=== PATIENT | male | born 1965 | race African-American/Black ===

== ENCOUNTER 2019-03-20 05:31 | Inpatient (IN) | payer MEDICAID ==
[~2019-03-20] VITALS: Ht 175.3 cm; Wt 62.6 kg
[2019-03-20] MEDS ORDERED: MORPHINE SULFATE 4 MG/ML CPJ (NOT FOR IM USE) IV STA (07:12)
[2019-03-20] MEDS ORDERED: ONDANSETRON HCL 4MG/2ML INJ IV STA (07:12)
[2019-03-20 09:35] LABS: CHLORIDE 105 mEq/L (98-107)
[2019-03-20 09:37] LABS: HEMATOCRIT. 22.6 % (42.0-52.0); MEAN CORPUSCULAR HEMOGLOBIN 21.4 pg (28.0-32.0); MEAN CORPUSCULAR VOLUME 71.1 fL (80.0-94.0); MEAN PLATELET VOLUME 7.2 fl (7.4-10.4); PLATELET 197 x1000/uL (130-400); RED BLOOD CELL COUNT 3.18 mill/uL (4.7-6.1); RED CELL DISTRIBUTION WIDTH 20.3 % (11.6-14.6)
[2019-03-20 09:44] LABS: HEMOGLOBIN. 6.8 g/dL (14.0-18.0)
[2019-03-20 10:16] LABS: PLATELET ESTIMATE NORMAL
[2019-03-20] MEDS: SODIUM CHLORIDE 0.45% 1,000 ML IV SCH ×2 (11:53→16:41)
[2019-03-20] MEDS ORDERED: CLONIDINE 0.1MG TABLET PO PRN (12:00)
[2019-03-20] MEDS ORDERED: MAGNESIUM/ALUMINUM HYDROXIDE/SIMETHICONE 30ML UDC PO PRN (12:00)
[2019-03-20] MEDS ORDERED: NA PHOS,M-B/NA PHOS,DI-BA ENEMA 118ML PR PRN (12:00)
[2019-03-20] MEDS ORDERED: MORPHINE SULFATE 2 MG/ML CPJ (NOT FOR IM USE) IV PRN (12:00)
[2019-03-20] MEDS ORDERED: ACETAMINOPHEN 325MG TABLET PO PRN (12:00)
[2019-03-20] MEDS ORDERED: GUAIFENESIN 200MG/10ML SUGAR FREE UDC PO PRN (12:00)
[2019-03-20] MEDS ORDERED: DIPHENHYDRAMINE 50MG/ML VIAL IV PRN (12:00)
[2019-03-20] MEDS ORDERED: HYDROCODONE/ACETAMINOPHEN 5/325MG TABLET PO PRN (12:00)
[2019-03-20] MEDS ORDERED: DOCUSATE SODIUM 100MG CAPSULE PO PRN (12:00)
[2019-03-20] MEDS ORDERED: LORAZEPAM 2MG/ML CPJ IV PRN (12:00)
[2019-03-20] MEDS ORDERED: ONDANSETRON HCL 4MG/2ML INJ IV PRN (12:00)
[2019-03-20] MEDS ORDERED: PANTOPRAZOLE SODIUM 40 MG/VIAL IV SCH (12:45)
[2019-03-20 14:34] LABS: CHLORIDE 104 mEq/L (98-107); HEMOGLOBIN 6.9 g/dL (14.0-18.0)
[2019-03-20 14:35] LABS: HEMATOCRIT 22.8 % (42.0-52.0)
[2019-03-20 14:39] LABS: TOTAL IRON BINDING CAPACITY 445 ug/dL (250-450)
[2019-03-20] MEDS: PANTOPRAZOLE SODIUM 40 MG/VIAL IV SCH (19:55)
[2019-03-20 20:45] VITALS: BP 119/60
[2019-03-21] VITALS: BP 114/69
[2019-03-21 00:33] LABS: HEMATOCRIT 28.7 % (42.0-52.0); HEMOGLOBIN 8.8 g/dL (14.0-18.0)
[2019-03-21] MEDS ORDERED: ALBU05 NEB (01:14)
[2019-03-21 04:00] VITALS: BP 121/72
[2019-03-21 07:35] LABS: CHLORIDE 103 mEq/L (98-107)
[2019-03-21 07:47] LABS: LDL CHOLESTEROL 102 mg/dL (5-100)
[2019-03-21 07:49] LABS: HDL CHOLESTEROL 71 mg/dL (40-59)
[2019-03-21 07:55] LABS: HEMATOCRIT. 30.2 % (42.0-52.0); HEMOGLOBIN. 9.1 g/dL (14.0-18.0); MEAN CORPUSCULAR HEMOGLOBIN 22.1 pg (28.0-32.0); MEAN CORPUSCULAR VOLUME 73.4 fL (80.0-94.0); MEAN PLATELET VOLUME 7.7 fl (7.4-10.4); PLATELET 185 x1000/uL (130-400); RED BLOOD CELL COUNT 4.11 mill/uL (4.7-6.1); RED CELL DISTRIBUTION WIDTH 21.8 % (11.6-14.6)
[2019-03-21 08:00] VITALS: BP 123/70
[2019-03-21] MEDS: PANTOPRAZOLE SODIUM 40 MG/VIAL IV SCH ×3 (09:09→20:45)
[2019-03-21] MEDS: POTASSIUM CHLORIDE 20MEQ TABLET SR PO NR ×2 (11:09→11:14)
[2019-03-21 11:45] VITALS: BP 116/75
[2019-03-21] MEDS ORDERED: POTASSIUM CHLORIDE INJ 40 MEQ in DEXT 5% WATER 250 ML IV SCH (13:00)
[2019-03-21] MEDS ORDERED: MIDAZOLAM HCL 5 MG/5 ML VIAL ONE (14:34)
[2019-03-21] MEDS ORDERED: PROPOFOL 200MG/20ML VIAL IV ONE ×2 (14:34→14:39)
[2019-03-21] MEDS ORDERED: SUCCINYLCHOLINE CHLORIDE 200MG/10ML IV ONE (14:35)
[2019-03-21] MEDS ORDERED: FENTANYL CITRATE/PF 50MCG/ML 2ML VIAL ONE (14:39)
[2019-03-21 16:58] VITALS: BP 129/74
[2019-03-21 17:11] LABS: CREATINE KINASE 130 IU/L (39-308)
[2019-03-21 17:12] LABS: CREATINE KINASE MB FRACTION < 1.0 ng/mL (0.5-3.6)
[2019-03-21 17:14] LABS: T4 FREE 1.23 ng/dL (0.76-1.46)
[2019-03-21] MEDS: SUCRALFATE 1G TABLET PO SCH ×2 (17:47→20:32)
[2019-03-21 19:52] LABS: PLATELET ESTIMATE NORMAL
[2019-03-21 20:00] VITALS: BP 119/77
[2019-03-22] VITALS: BP 119/77
[2019-03-22] MEDS ORDERED: BISACODYL 5MG TABLET PO ONE ×2 (01:15→06:15)
[2019-03-22] MEDS ORDERED: SORBITOL 70% SOLN 30ML PO ONE ×2 (01:15→05:30)
[2019-03-22] MEDS ORDERED: METOCLOPRAMIDE HCL 10MG/2ML VIAL IV ONE ×3 (01:15→10:30)
[2019-03-22 04:00] VITALS: BP 113/77
[2019-03-22 05:10] LABS: HEMATOCRIT. 29.9 % (42.0-52.0); HEMOGLOBIN. 9.1 g/dL (14.0-18.0); MEAN CORPUSCULAR HEMOGLOBIN 22.3 pg (28.0-32.0); MEAN CORPUSCULAR VOLUME 73.6 fL (80.0-94.0); MEAN PLATELET VOLUME 7.7 fl (7.4-10.4); PLATELET 155 x1000/uL (130-400); RED BLOOD CELL COUNT 4.05 mill/uL (4.7-6.1)
[2019-03-22] MEDS: SODIUM CHLORIDE 0.45% 1,000 ML IV SCH (05:53)
[2019-03-22 05:57] LABS: CHLORIDE 104 mEq/L (98-107)
[2019-03-22] MEDS: SUCRALFATE 1G TABLET PO SCH ×4 (06:18→20:37)
[2019-03-22 06:19] LABS: CREATINE KINASE 136 IU/L (39-308)
[2019-03-22 06:20] LABS: CREATINE KINASE MB FRACTION < 1.0 ng/mL (0.5-3.6)
[2019-03-22 08:00] VITALS: BP 132/91
[2019-03-22 10:05] LABS: PLATELET ESTIMATE NORMAL
[2019-03-22] MEDS ORDERED: POTASSIUM CHLORIDE INJ 40 MEQ in DEXT 5% WATER 250 ML IV SCH (10:30)
[2019-03-22 12:00] VITALS: BP 125/91
[2019-03-22] MEDS ORDERED: KETAMINE HCL 50 MG/ML 10ML ONE (13:11)
[2019-03-22] MEDS ORDERED: LIDOCAINE HCL/PF 1% 10 MG/ML 5ML VIAL ONE (13:15)
[2019-03-22] MEDS ORDERED: PROPOFOL 200MG/20ML VIAL IV ONE (13:15)
[2019-03-22] MEDS ORDERED: MIDAZOLAM HCL 2 MG/2 ML VIAL ONE (13:15)
[2019-03-22] MEDS: SODIUM CHLORIDE 0.9% 1,000 ML IV SCH (14:19)
[2019-03-22 16:00] VITALS: BP 134/81
[2019-03-22] MEDS: PANTOPRAZOLE SODIUM 40 MG/VIAL IV SCH (16:53)
[2019-03-22 18:08] LABS: INR 1.3
[2019-03-22 20:00] VITALS: BP 125/89
[2019-03-23] VITALS: BP 129/73
[2019-03-23] MEDS: SODIUM CHLORIDE 0.9% 1,000 ML IV SCH (01:41)
[2019-03-23 04:00] VITALS: BP 134/81
[2019-03-23] MEDS: SUCRALFATE 1G TABLET PO SCH (05:24)
[2019-03-23 07:38] VITALS: BP 136/85
[2019-03-23 07:41] VITALS: BP 136/85
[2019-03-23] MEDS: PANTOPRAZOLE SODIUM 40 MG/VIAL IV SCH (09:00)
== END 2019-03-23 08:30 | disposition home or self-care (01) | DRG 241 ==
LOC: ER 05:31 → EDBEDREQ 14:48 → EDBEDREQSVC 14:48 → 8WST 15:29 → CANRESERV 19:04 → ENRESERV 19:04
PROVIDERS: ADMIT Internal Medicine; ATTEND Internal Medicine
PROC: 30233N1 Transfusion of Nonautologous Red Blood Cells into Peripheral Vein, Percutaneous Approach (ICD-10-PCS; 2019-03-20)
PROC: 0DB68ZX Excision of Stomach, Via Natural or Artificial Opening Endoscopic, Diagnostic (ICD-10-PCS; principal; 2019-03-21)
PROC: 0DJD8ZZ Inspection of Lower Intestinal Tract, Via Natural or Artificial Opening Endoscopic (ICD-10-PCS; 2019-03-22)
DX: K29.60 Other gastritis without bleeding (principal); R64 Cachexia; I48.19 Other persistent atrial fibrillation; E44.1 Mild protein-calorie malnutrition; D50.9 Iron deficiency anemia, unspecified; F17.210 Nicotine dependence, cigarettes, uncomplicated; D17.5 Benign lipomatous neoplasm of intra-abdominal organs; E78.5 Hyperlipidemia, unspecified; E86.0 Dehydration; K64.8 Other hemorrhoids; K21.0 Gastro-esophageal reflux disease with esophagitis; E87.6 Hypokalemia; J44.9 Chronic obstructive pulmonary disease, unspecified; I10 Essential (primary) hypertension; Z68.20 Body mass index [BMI] 20.0-20.9, adult; K29.80 Duodenitis without bleeding
CPT/HCPCS: 36415; 71045; 80048; 80053; 80061; 82270; 82550; 82553; 82728; 83036; 83540; 83550; 83735; 83880; 84132; 84439; 84443; 84484; 85014; 85018; 85025; 85379; 86850; 86900; 86920; 87804; 88305; 88313; 93005; 93306; 96374; 99285; C1893; C9113; G0378; J0330; J2250; J2270; J2405; J2704; J2765; J3010; J3480; J3490; J7030; J7060; P9016

== ENCOUNTER 2020-06-19 02:47 | Inpatient (IN) | payer MEDICAID ==
[~2020-06-19] VITALS: Ht 175.3 cm; Wt 68.5 kg
[~2020-06-19 02:47] MED LIST: ALBU05 NEB
[2020-06-19 03:10] LABS: BASOPHILS % 0.2 % (0.0-2.0); EOSINOPHILS % 2.4 % (0.0-5.0); HEMATOCRIT. 32.8 % (42.0-52.0); HEMOGLOBIN. 11.1 g/dL (14.0-18.0); LYMPHOCYTES % 18.7 % (20.0-50.0); MEAN CORPUSCULAR HEMOGLOBIN 30.3 pg (28.0-32.0); MEAN CORPUSCULAR VOLUME 89.8 fL (80.0-94.0); MEAN PLATELET VOLUME 8.5 fl (7.4-10.4); MONOCYTES % 7.9 % (2.0-8.0); NEUTROPHILS % 70.8 % (40.0-76.0); PLATELET 109 x1000/uL (130-400); RED BLOOD CELL COUNT 3.66 mill/uL (4.7-6.1)
[2020-06-19] MEDS ORDERED: MORPHINE SULFATE 4 MG/ML CPJ (NOT FOR IM USE) IV ONE (03:15)
[2020-06-19 03:18] LABS: CHLORIDE 88 mEq/L (98-107)
[2020-06-19 03:22] LABS: PARTIAL THROMBOPLASTIN TIME 26.5 sec (23.4-31.0); PROTHROMBIN TIME 11.2 sec (9.6-11.0)
[2020-06-19] MEDS ORDERED: POTASSIUM CHLORIDE 20MEQ TABLET SR PO NR ×2 (04:00→14:45)
[2020-06-19] MEDS ORDERED: POTASSIUM CHLORIDE INJ 30 MEQ in DEXT 5%/0.9% NACL 1,000 ML IV NR (04:30)
[2020-06-19 06:17] LABS: CLARITY URINE CLEAR (CLEAR); COLOR URINE YELLOW (YELLOW); KETONES URINE 1+ (NEGATIVE); LEUKOCYTE ESTERASE URINE 1+ (NEGATIVE); NITRITE URINE NEGATIVE (NEGATIVE); OCCULT BLOOD URINE NEGATIVE (NEGATIVE); PROTEIN URINE NEGATIVE (NEGATIVE); SPECIFIC GRAVITY URINE 1.006 (1.005-1.030)
[2020-06-19] MEDS ORDERED: LORAZEPAM 0.5MG TABLET PO PRN (09:00)
[2020-06-19] MEDS ORDERED: CLONIDINE 0.1MG TABLET PO PRN (09:00)
[2020-06-19] MEDS ORDERED: ONDANSETRON HCL 4MG/2ML INJ IV PRN (09:00)
[2020-06-19] MEDS ORDERED: DOCUSATE SODIUM 100MG CAPSULE PO PRN (09:00)
[2020-06-19] MEDS ORDERED: HYDROCODONE/ACETAMINOPHEN 5/325MG TABLET PO PRN (09:00)
[2020-06-19] MEDS ORDERED: ACETAMINOPHEN 325MG TABLET PO PRN ×2 (09:00)
[2020-06-19] MEDS ORDERED: IPRATROPIUM/ALBUTEROL 0.5-3(2.5)MG/3ML NEB HHN PRN (09:00)
[2020-06-19 10:15] LABS: CHLORIDE 94 mEq/L (98-107)
[2020-06-19 10:25] LABS: CREATINE KINASE 526 IU/L (39-308)
[2020-06-19 10:26] LABS: CREATINE KINASE MB FRACTION 1.1 ng/mL (0.5-3.6)
[2020-06-19] MEDS ORDERED: POTASSIUM CHLORIDE 20MEQ TABLET SR PO SCH (10:30)
[2020-06-19 10:48] LABS: BG BASE EXCESS 9.5 mmol/L (-2.0-2.0); BG CARBOXYHEMOGLOBIN 1.3 % (0.5-1.5); BG DEOXYHEMOGLOBIN 8.2 % (0.0-5.0); BG FRACTION INSPIRED OXYGEN 21; BG HCO3 ACT 33.1 mmol/L (22.0-26.0); BG METHEMOGLOBIN 0.2 % (0.0-1.5); BG OXYGEN SATURATION 91.7 % (92.0-98.5); BG OXYHEMOGLOBIN 90.3 % (94.0-97.0); BG PCO2 40.9 mmHg (35.0-45.0); BG PH 7.526 (7.350-7.450); BG PO2 59.6 mmHg (75.0-100.0); BG SAMPLE SITE RIGHT RADIAL; BG TOTAL HEMOGLOBIN 11.9 g/dL (12.0-18.0); BG VENT MODE ROOM AIR
[2020-06-19 12:00] VITALS: BP 90/56
[2020-06-19] MEDS ORDERED: NICOTINE 7MG PATCH TD SCH (14:00)
[2020-06-19 16:00] VITALS: BP 101/64
[2020-06-19 17:15] VITALS: BP 119/71
[2020-06-19] MEDS ORDERED: NICOTINE 14MG PATCH TD SCH (17:30)
[2020-06-19] MEDS: SODIUM CHLORIDE 0.9% 1,000 ML IV SCH (18:06)
[2020-06-19 20:00] VITALS: BP 114/7
[2020-06-19] MEDS: CHLORDIAZEPOXIDE 25MG CAPSULE PO SCH (21:50)
[2020-06-20] VITALS: BP 109/65
[2020-06-20 04:00] VITALS: BP 112/78
[2020-06-20] MEDS: CHLORDIAZEPOXIDE 25MG CAPSULE PO SCH ×3 (06:42→21:23)
[2020-06-20] MEDS: SODIUM CHLORIDE 0.9% 1,000 ML IV SCH (06:43)
[2020-06-20 07:19] LABS: HEMATOCRIT. 34.4 % (42.0-52.0); HEMOGLOBIN. 11.2 g/dL (14.0-18.0); MEAN CORPUSCULAR HEMOGLOBIN 30.2 pg (28.0-32.0); MEAN CORPUSCULAR VOLUME 92.6 fL (80.0-94.0); MEAN PLATELET VOLUME 9.6 fl (7.4-10.4); PLATELET 113 x1000/uL (130-400); RED BLOOD CELL COUNT 3.72 mill/uL (4.7-6.1); RED CELL DISTRIBUTION WIDTH 19.4 % (11.6-14.6)
[2020-06-20 07:20] LABS: *AMPHETAMINES SCREEN URINE NEGATIVE (NEGATIVE); *BARBITURATES SCREEN URINE NEGATIVE (NEGATIVE); *BENZODIAZEPINES SCREEN URINE NEGATIVE (NEGATIVE)
[2020-06-20 07:21] LABS: *COCAINE SCREEN URINE NEGATIVE (NEGATIVE); CANNABINOID URINE SCREEN PRESUMTIVE POSITIVE (NEGATIVE); METHADONE URINE SCREEN NEGATIVE (NEGATIVE); OPIATES URINE SCREEN PRESUMTIVE POSITIVE (NEGATIVE); PHENCYCLIDINE URINE SCREEN NEGATIVE (NEGATIVE)
[2020-06-20 07:34] LABS: CHLORIDE 98 mEq/L (98-107)
[2020-06-20 07:47] LABS: FERRITIN 144 ng/mL (22-322)
[2020-06-20 07:49] LABS: TOTAL IRON BINDING CAPACITY 376 ug/dL (250-450)
[2020-06-20 07:51] LABS: CREATINE KINASE 237 IU/L (39-308)
[2020-06-20 07:58] LABS: HEPATITIS B SURFACE ANTIGEN NEGATIVE
[2020-06-20 08:27] LABS: HEPATITIS A AB IGM NEGATIVE (NEGATIVE)
[2020-06-20] MEDS ORDERED: POTASSIUM CHLORIDE 20MEQ/PACKET PO NR (08:45)
[2020-06-20] MEDS ORDERED: NICOTINE 14MG PATCH TD SCH (09:00)
[2020-06-20] MEDS: NICOTINE 14MG PATCH TD SCH (09:53)
[2020-06-20] MEDS ORDERED: POTASSIUM CHLORIDE INJ 40 MEQ in DEXT 5% WATER 250 ML IV NR (11:00)
[2020-06-20 12:00] VITALS: BP 105/71
[2020-06-20 14:32] LABS: VITAMIN B12 SERUM 536 pg/mL (211-911)
[2020-06-20 16:00] VITALS: BP 112/67
[2020-06-20 16:45] LABS: PLATELET ESTIMATE DECREASED
[2020-06-20 20:00] VITALS: BP 123/68
[2020-06-21] VITALS: BP 98/69
[2020-06-21 04:00] VITALS: BP 106/66
[2020-06-21] MEDS: CHLORDIAZEPOXIDE 25MG CAPSULE PO SCH ×2 (06:10→13:39)
[2020-06-21] MEDS: SODIUM CHLORIDE 0.9% 1,000 ML IV SCH ×2 (06:11→09:13)
[2020-06-21 07:07] LABS: HEMATOCRIT. 33.9 % (42.0-52.0); MEAN CORPUSCULAR VOLUME 92.5 fL (80.0-94.0); MEAN PLATELET VOLUME 9.2 fl (7.4-10.4); PLATELET 140 x1000/uL (130-400); RED BLOOD CELL COUNT 3.66 mill/uL (4.7-6.1); RED CELL DISTRIBUTION WIDTH 19.4 % (11.6-14.6)
[2020-06-21 07:34] LABS: CHLORIDE 104 mEq/L (98-107)
[2020-06-21 08:00] VITALS: BP 116/76
[2020-06-21] MEDS: NICOTINE 14MG PATCH TD SCH (09:13)
[2020-06-21 12:00] VITALS: BP 124/69
[2020-06-21] MEDS: PANTOPRAZOLE SODIUM 40 MG/VIAL IV SCH (13:39)
[2020-06-21 15:46] LABS: PLATELET ESTIMATE NORMAL
[2020-06-21 16:00] VITALS: BP_SYST 116; BP_SYST 121; BP_DIAS 72; BP_DIAS 91
[2020-06-21 20:00] VITALS: BP 112/70
[2020-06-22] VITALS: BP 117/76
[2020-06-22] MEDS: CHLORDIAZEPOXIDE 25MG CAPSULE PO SCH ×3 (00:20→13:27)
[2020-06-22] MEDS: SODIUM CHLORIDE 0.9% 1,000 ML IV SCH ×2 (00:28→12:10)
[2020-06-22 04:00] VITALS: BP 119/81
[2020-06-22 07:09] LABS: HEMATOCRIT. 34.7 % (42.0-52.0); HEMOGLOBIN. 11.4 g/dL (14.0-18.0); MEAN CORPUSCULAR HEMOGLOBIN 30.6 pg (28.0-32.0); MEAN PLATELET VOLUME 8.4 fl (7.4-10.4); PLATELET 168 x1000/uL (130-400); RED BLOOD CELL COUNT 3.73 mill/uL (4.7-6.1); RED CELL DISTRIBUTION WIDTH 19.4 % (11.6-14.6)
[2020-06-22 07:24] LABS: CHLORIDE 107 mEq/L (98-107)
[2020-06-22 08:00] VITALS: BP 112/75
[2020-06-22] MEDS: NICOTINE 14MG PATCH TD SCH (08:28)
[2020-06-22] MEDS: PANTOPRAZOLE SODIUM 40 MG/VIAL IV SCH (08:29)
[2020-06-22] MEDS ORDERED: PANT40TA51 MT (11:37)
[2020-06-22 12:00] VITALS: BP 108/78
[2020-06-22 13:37] LABS: ATYPICAL LYMPHOCYTES 1; PLATELET ESTIMATE NORMAL
[2020-06-22 14:37] VITALS: BP 108/78
[2020-06-23] MEDS ORDERED: FAMOTIDINE 20MG TABLET PO SCH (09:00)
== END 2020-06-22 15:15 | disposition home or self-care (01) | DRG 203 ==
LOC: ER 02:47 → 8WST 05:29 → EDBEDREQTM 05:33 → EDBEDREQ 05:33 → ENRESERV 07:23
PROVIDERS: ADMIT Internal Medicine; ATTEND Internal Medicine
DX: M94.0 Chondrocostal junction syndrome [Tietze] (principal); D69.6 Thrombocytopenia, unspecified; E87.8 Other disorders of electrolyte and fluid balance, not elsewhere classified; E87.1 Hypo-osmolality and hyponatremia; I36.1 Nonrheumatic tricuspid (valve) insufficiency; M62.82 Rhabdomyolysis; I45.81 Long QT syndrome; R56.9 Unspecified convulsions; D64.9 Anemia, unspecified; E87.6 Hypokalemia; F12.90 Cannabis use, unspecified, uncomplicated; F17.210 Nicotine dependence, cigarettes, uncomplicated; I10 Essential (primary) hypertension; F10.10 Alcohol abuse, uncomplicated; R74.01 Elevation of levels of liver transaminase levels; Z79.899 Other long term (current) drug therapy; J45.909 Unspecified asthma, uncomplicated; R41.3 Other amnesia
CPT/HCPCS: 36415; 36600; 71045; 76700; 80048; 80053; 80305; 80320; 81003; 82375; 82550; 82553; 82607; 82728; 82746; 82805; 83540; 83550; 83735; 83880; 84484; 85025; 86705; 86709; 86803; 87340; 93005; 93306; 99285; C9113; J2270; J3480; J7030; J7042; J7060; G0480

== ENCOUNTER 2020-12-27 08:52 | Emergency (ER) | payer MEDICAID ==
[~2020-12-27] VITALS: Ht 180.3 cm; Wt 70.0 kg
[~2020-12-27 08:52] MED LIST changes: +PANT40TA51 MT
[2020-12-27] MEDS ORDERED: SODIUM CHLORIDE 0.9% 1,000 ML IV ONE (09:30)
[2020-12-27 10:04] LABS: BASOPHILS % 1.8 % (0.0-2.0); EOSINOPHILS % 2.8 % (0.0-5.0); HEMATOCRIT. 39.8 % (42.0-52.0); HEMOGLOBIN. 13.1 g/dL (14.0-18.0); LYMPHOCYTES % 40.9 % (20.0-50.0); MEAN CORPUSCULAR HEMOGLOBIN 33.9 pg (28.0-32.0); MEAN PLATELET VOLUME 7.8 fl (7.4-10.4); MONOCYTES % 7.8 % (2.0-8.0); NEUTROPHILS % 46.7 % (40.0-76.0); PLATELET 337 x1000/uL (130-400); RED BLOOD CELL COUNT 3.87 mill/uL (4.7-6.1); RED CELL DISTRIBUTION WIDTH 16.1 % (11.6-14.6)
[2020-12-27 11:34] LABS: CHLORIDE 117 mEq/L (98-107)
[2020-12-27 11:54] LABS: ETHANOL BLOOD 331 mg/dL
[2020-12-27 12:23] VITALS: BP 127/80
== END 2020-12-27 12:49 | disposition home or self-care (01) ==
LOC: ER 08:54
DX: F10.129 Alcohol abuse with intoxication, unspecified (principal); J45.909 Unspecified asthma, uncomplicated; I49.9 Cardiac arrhythmia, unspecified; R51.9 Headache, unspecified; Z86.59 Personal history of other mental and behavioral disorders; Y90.8 Blood alcohol level of 240 mg/100 ml or more
CPT/HCPCS: 36415; 70450; 80053; 80320; 85025; 93005; 96360; 99285; J7030; Z7610; G0480

== ENCOUNTER 2021-01-03 20:29 | Emergency (ER) | payer MEDICAID ==
[~2021-01-03] VITALS: Ht 177.8 cm; Wt 81.6 kg
[2021-01-03] MEDS: ONDANSETRON HCL 4MG/2ML INJ IV STA (21:33)
[2021-01-03] MEDS: MORPHINE SULFATE 4 MG/ML CPJ (NOT FOR IM USE) IV STA (21:34)
[2021-01-03] MEDS: NITROGLYCERIN OINT 1GM/INCH UDPKT TD ONE (21:34)
[2021-01-03 21:36] LABS: BASOPHILS % 0.5 % (0.0-2.0); HEMATOCRIT. 36.1 % (42.0-52.0); HEMOGLOBIN. 12.2 g/dL (14.0-18.0); LYMPHOCYTES % 22.7 % (20.0-50.0); MEAN CORPUSCULAR HEMOGLOBIN 33.7 pg (28.0-32.0); MEAN CORPUSCULAR VOLUME 99.8 fL (80.0-94.0); MEAN PLATELET VOLUME 8.6 fl (7.4-10.4); MONOCYTES % 7.5 % (2.0-8.0); NEUTROPHILS % 66.3 % (40.0-76.0); PLATELET 171 x1000/uL (130-400); RED BLOOD CELL COUNT 3.61 mill/uL (4.7-6.1); RED CELL DISTRIBUTION WIDTH 16.1 % (11.6-14.6)
[2021-01-03] MEDS: ASPIRIN 81MG TABLET PO ONE (21:42)
[2021-01-03 21:44] LABS: CHLORIDE 98 mEq/L (98-107)
[2021-01-03 21:48] LABS: ETHANOL BLOOD 14 mg/dL
[2021-01-03 22:01] LABS: *AMPHETAMINES SCREEN URINE NEGATIVE (NEGATIVE); *BARBITURATES SCREEN URINE NEGATIVE (NEGATIVE)
[2021-01-03 22:02] LABS: *BENZODIAZEPINES SCREEN URINE NEGATIVE (NEGATIVE); *COCAINE SCREEN URINE NEGATIVE (NEGATIVE); METHADONE URINE SCREEN NEGATIVE (NEGATIVE); OPIATES URINE SCREEN NEGATIVE (NEGATIVE)
[2021-01-03 22:03] LABS: CANNABINOID URINE SCREEN PRESUMTIVE POSITIVE (NEGATIVE); PHENCYCLIDINE URINE SCREEN NEGATIVE (NEGATIVE)
[2021-01-03 23:16] VITALS: BP 139/84
== END 2021-01-04 00:01 | disposition short-term general hospital (02) ==
LOC: ER 20:29
DX: R07.89 Other chest pain (principal); I10 Essential (primary) hypertension; J45.909 Unspecified asthma, uncomplicated; F10.129 Alcohol abuse with intoxication, unspecified; Z86.59 Personal history of other mental and behavioral disorders; Y90.0 Blood alcohol level of less than 20 mg/100 ml
CPT/HCPCS: 36415; 71045; 80053; 80305; 80320; 83690; 83880; 84484; 85025; 93005; 96374; 96375; 99285; J2270; J2405; Z7610; G0480

== ENCOUNTER 2021-08-25 09:48 | Emergency (ER) | payer MEDICAID, OTHER ==
[~2021-08-25] VITALS: Ht 175.3 cm; Wt 68.0 kg
[2021-08-25] MEDS ORDERED: KETOROLAC 30MG/ML VIAL IV ONE ×2 (10:45→14:29)
[2021-08-25] MEDS ORDERED: LEVETIRACETAM 1000MG PREMIX 100 ML IV ONE ×2 (10:45→14:30)
[2021-08-25 11:16] LABS: HEMATOCRIT. 33.2 % (42.0-52.0); HEMOGLOBIN. 10.7 g/dL (14.0-18.0); MEAN CORPUSCULAR HEMOGLOBIN 28.2 pg (28.0-32.0); MEAN CORPUSCULAR VOLUME 87.2 fL (80.0-94.0); PLATELET 191 x1000/uL (130-400); RED CELL DISTRIBUTION WIDTH 23.5 % (11.6-14.6)
[2021-08-25 11:25] LABS: CHLORIDE 107 mEq/L (98-107); PROTHROMBIN TIME 11.2 sec (9.6-11.0)
[2021-08-25 11:37] LABS: CREATINE KINASE 470 IU/L (39-308); ETHANOL BLOOD < 10 mg/dL
[2021-08-25] MEDS ORDERED: SODIUM CHLORIDE 0.9% 1,000 ML IV ONE (11:45)
[2021-08-25 12:06] LABS: PLATELET ESTIMATE NORMAL
[2021-08-25 14:53] LABS: HEMATOCRIT 32.1 % (42.0-52.0); HEMOGLOBIN 10.3 g/dL (14.0-18.0)
[2021-08-25 15:43] VITALS: BP 120/80
== END 2021-08-25 16:06 | disposition short-term general hospital (02) ==
LOC: ER 10:08
DX: S22.31XA Fracture of one rib, right side, initial encounter for closed fracture (principal); X58.XXXA Exposure to other specified factors, initial encounter; Y93.89 Activity, other specified; Y92.89 Other specified places as the place of occurrence of the external cause; Y99.8 Other external cause status; R56.9 Unspecified convulsions; R55 Syncope and collapse; R07.89 Other chest pain; F10.229 Alcohol dependence with intoxication, unspecified; Y90.0 Blood alcohol level of less than 20 mg/100 ml; J45.909 Unspecified asthma, uncomplicated; Z87.891 Personal history of nicotine dependence; Z20.822 Contact with and (suspected) exposure to COVID-19
CPT/HCPCS: 36415; 71045; 76700; 80053; 80320; 82550; 83690; 83880; 84484; 85014; 85018; 85025; 85610; 87426; 93005; 96374; 96375; 99285; C9803; J1885; J1953; J7030; G0480

== ENCOUNTER 2021-11-04 03:05 | Emergency (ER) | payer OTHER ==
[~2021-11-04] VITALS: Ht 180.3 cm; Wt 68.0 kg
[~2021-11-04 03:05] MED LIST changes: +LEVE750T4 PO
[2021-11-04] MEDS ORDERED: SODIUM CHLORIDE 0.9% 1,000 ML IV ONE (03:15)
[2021-11-04] MEDS ORDERED: LEVETIRACETAM 1000MG PREMIX 100 ML IV ONE (03:15)
[2021-11-04 03:30] LABS: BASOPHILS % 0.3 % (0.0-2.0); EOSINOPHILS % 5.5 % (0.0-5.0); HEMATOCRIT. 34.9 % (42.0-52.0); HEMOGLOBIN. 11.4 g/dL (14.0-18.0); LYMPHOCYTES % 35.3 % (20.0-50.0); MEAN CORPUSCULAR HEMOGLOBIN 26.3 pg (28.0-32.0); MEAN CORPUSCULAR VOLUME 80.3 fL (80.0-94.0); MEAN PLATELET VOLUME 7.5 fl (7.4-10.4); MONOCYTES % 10.2 % (2.0-8.0); NEUTROPHILS % 48.7 % (40.0-76.0); PLATELET 192 x1000/uL (130-400); RED BLOOD CELL COUNT 4.35 mill/uL (4.7-6.1); RED CELL DISTRIBUTION WIDTH 22.6 % (11.6-14.6)
[2021-11-04 03:38] LABS: CHLORIDE 99 mEq/L (98-107)
[2021-11-04 03:45] LABS: ETHANOL BLOOD < 10 mg/dL
[2021-11-04] MEDS ORDERED: LEVE750T4 MT (05:19)
[2021-11-04 05:38] VITALS: BP 138/87
== END 2021-11-04 05:39 | disposition home or self-care (01) ==
LOC: ER 03:05
DX: G40.909 Epilepsy, unspecified, not intractable, without status epilepticus (principal); R03.0 Elevated blood-pressure reading, without diagnosis of hypertension; E87.1 Hypo-osmolality and hyponatremia; R94.31 Abnormal electrocardiogram [ECG] [EKG]
CPT/HCPCS: 36415; 80053; 80320; 82962; 85025; 93005; 96365; 99284; J1953; J7030; G0480

== ENCOUNTER 2022-03-18 11:42 | Inpatient (IN) | payer OTHER ==
[~2022-03-18] VITALS: Ht 172.7 cm; Wt 61.2 kg
[~2022-03-18 11:42] MED LIST changes: +LEVE750T4 MT
[2022-03-18] MEDS ORDERED: SODIUM CHLORIDE 0.9% 1,000 ML IV ONE (12:15)
[2022-03-18] MEDS ORDERED: LORAZEPAM 2MG/ML CPJ IV ONE ×2 (12:15→15:30)
[2022-03-18] MEDS ORDERED: LEVETIRACETAM 1000MG PREMIX 100 ML IV ONE (12:15)
[2022-03-18] MEDS ORDERED: FOLIC ACID 1 MG, THIAMINE HCL 100 MG, MVI, ADULT NO.1 10 ML in DEXTROSE 5% WATER 1,000 ML IV ONE ×4 (12:45)
[2022-03-18 12:48] LABS: BASOPHILS % 0.7 % (0.0-2.0); CLARITY URINE CLEAR (CLEAR); COLOR URINE YELLOW (YELLOW); HEMATOCRIT. 36.3 % (42.0-52.0); HEMOGLOBIN. 11.6 g/dL (14.0-18.0); KETONES URINE TRACE (NEGATIVE); LEUKOCYTE ESTERASE URINE NEGATIVE (NEGATIVE); LYMPHOCYTES % 7.8 % (20.0-50.0); MEAN CORPUSCULAR HEMOGLOBIN 30.1 pg (28.0-32.0); MEAN CORPUSCULAR VOLUME 94.6 fL (80.0-94.0); MEAN PLATELET VOLUME 8.8 fl (7.4-10.4); MONOCYTES % 7.1 % (2.0-8.0); NEUTROPHILS % 84.4 % (40.0-76.0); NITRITE URINE NEGATIVE (NEGATIVE); OCCULT BLOOD URINE 3+ (NEGATIVE); PH URINE 5.5 (4.5-8.0); PLATELET 143 x1000/uL (130-400); PROTEIN URINE 2+ (NEGATIVE); RED BLOOD CELL COUNT 3.84 mill/uL (4.7-6.1); RED CELL DISTRIBUTION WIDTH 26.4 % (11.6-14.6)
[2022-03-18 12:58] LABS: CHLORIDE 94 mEq/L (98-107)
[2022-03-18 13:35] LABS: *AMPHETAMINES SCREEN URINE NEGATIVE (NEGATIVE); *BARBITURATES SCREEN URINE NEGATIVE (NEGATIVE); *BENZODIAZEPINES SCREEN URINE NEGATIVE (NEGATIVE); *COCAINE SCREEN URINE NEGATIVE (NEGATIVE); CANNABINOID URINE SCREEN PRESUMTIVE POSITIVE (NEGATIVE); METHADONE URINE SCREEN NEGATIVE (NEGATIVE); OPIATES URINE SCREEN NEGATIVE (NEGATIVE); PHENCYCLIDINE URINE SCREEN NEGATIVE (NEGATIVE); PLATELET ESTIMATE NORMAL
[2022-03-18 14:27] LABS: ETHANOL BLOOD 26 mg/dL
[2022-03-18] MEDS ORDERED: DEXTROSE 50% WATER 50ML SYRINGE IV ONE (15:00)
[2022-03-18] MEDS ORDERED: ACETAMINOPHEN 650MG/20.3ML UDC GT PRN (18:15)
[2022-03-18] MEDS ORDERED: IPRATROPIUM/ALBUTEROL 0.5-3(2.5)MG/3ML NEB HHN PRN (18:15)
[2022-03-18] MEDS ORDERED: GUAIFENESIN 200MG/10ML SUGAR FREE UDC PO PRN (18:15)
[2022-03-18] MEDS ORDERED: ONDANSETRON HCL 4MG/2ML INJ IV PRN (18:15)
[2022-03-18] MEDS ORDERED: MAGNESIUM/ALUMINUM HYDROXIDE/SIMETHICONE 30ML UDC PO PRN (18:15)
[2022-03-18] MEDS ORDERED: CLONIDINE 0.1MG TABLET PO PRN (18:15)
[2022-03-18] MEDS ORDERED: IPRATROPIUM BROMIDE (0.02%) 0.5MG/2.5ML NEB HHN PRN (19:15)
[2022-03-18] MEDS ORDERED: ALBUTEROL (0.083%) 2.5MG/3ML NEB HHN PRN (19:15)
[2022-03-18 19:44] VITALS: BP 135/88
[2022-03-18 19:55] VITALS: BP 135/88
[2022-03-18] MEDS ORDERED: IPRATROPIUM/ALBUTEROL 0.5-3(2.5)MG/3ML NEB HHN SCH (20:00)
[2022-03-18] MEDS: DEXT 5%/0.9% NACL 1,000 ML IV SCH (20:46)
[2022-03-18 22:42] LABS: CREATINE KINASE 2320 IU/L (39-308)
[2022-03-19 00:05] VITALS: BP 126/75
[2022-03-19 04:00] VITALS: BP 123/77
[2022-03-19] MEDS: DEXT 5%/0.9% NACL 1,000 ML IV SCH ×2 (05:15→15:15)
[2022-03-19 07:18] LABS: BASOPHILS % 0.2 % (0.0-2.0); EOSINOPHILS % 0.6 % (0.0-5.0); HEMATOCRIT. 32.3 % (42.0-52.0); HEMOGLOBIN. 10.7 g/dL (14.0-18.0); LYMPHOCYTES % 16.5 % (20.0-50.0); MEAN CORPUSCULAR HEMOGLOBIN 30.5 pg (28.0-32.0); MEAN PLATELET VOLUME 8.9 fl (7.4-10.4); MONOCYTES % 7.3 % (2.0-8.0); NEUTROPHILS % 75.4 % (40.0-76.0); PLATELET 99 x1000/uL (130-400); RED BLOOD CELL COUNT 3.51 mill/uL (4.7-6.1); RED CELL DISTRIBUTION WIDTH 26.1 % (11.6-14.6)
[2022-03-19 08:00] VITALS: BP 119/76
[2022-03-19] MEDS: PANTOPRAZOLE 40MG DR TABLET PO SCH (08:46)
[2022-03-19] MEDS: LEVETIRACETAM 500MG/5ML CUP PO SCH ×2 (08:46→20:20)
[2022-03-19] MEDS: ALBUTEROL (0.083%) 2.5MG/3ML NEB HHN SCH ×4 (08:48→20:52)
[2022-03-19] MEDS: IPRATROPIUM BROMIDE (0.02%) 0.5MG/2.5ML NEB HHN SCH ×4 (08:48→20:52)
[2022-03-19] MEDS: ENOXAPARIN 40MG/0.4ML SYR SUBCUT SCH (09:00)
[2022-03-19 09:18] LABS: CHLORIDE 97 mEq/L (98-107)
[2022-03-19] MEDS ORDERED: LORAZEPAM 2MG/ML CPJ IM PRN (09:45)
[2022-03-19 09:47] LABS: CREATINE KINASE 2081 IU/L (39-308); HDL CHOLESTEROL 79 mg/dL (40-59); LDL CHOLESTEROL 53 mg/dL (5-100); PHOSPHORUS 2.2 mg/dL (2.5-4.9); T4 FREE 1.04 ng/dL (0.76-1.46); TOTAL IRON BINDING CAPACITY 360 ug/dL (250-450)
[2022-03-19 10:07] LABS: VITAMIN B12 SERUM 791 pg/mL (211-911)
[2022-03-19 12:00] VITALS: BP 122/68
[2022-03-19 14:12] LABS: FERRITIN 56 ng/mL (22-322)
[2022-03-19 16:00] VITALS: BP 101/58
[2022-03-19 20:00] VITALS: BP 118/69
[2022-03-20] VITALS: BP 132/60
[2022-03-20] MEDS: IPRATROPIUM BROMIDE (0.02%) 0.5MG/2.5ML NEB HHN SCH ×5 (00:36→21:08)
[2022-03-20] MEDS: ALBUTEROL (0.083%) 2.5MG/3ML NEB HHN SCH ×4 (00:36→21:08)
[2022-03-20] MEDS: DEXT 5%/0.9% NACL 1,000 ML IV SCH ×3 (01:15→13:15)
[2022-03-20 04:00] VITALS: BP 134/77
[2022-03-20 06:56] LABS: CHLORIDE 98 mEq/L (98-107)
[2022-03-20 07:01] LABS: HEMATOCRIT 30.8 % (42.0-52.0); HEMOGLOBIN 10.1 g/dL (14.0-18.0); MEAN CORPUSCULAR HEMOGLOBIN 30.2 pg (28.0-32.0); MEAN CORPUSCULAR VOLUME 92.2 fL (80.0-94.0); PLATELET 79 x1000/uL (130-400); RED BLOOD CELL COUNT 3.34 mill/uL (4.7-6.1); RED CELL DISTRIBUTION WIDTH 25.7 % (11.6-14.6)
[2022-03-20 07:15] LABS: CREATINE KINASE 1854 IU/L (39-308); PHOSPHORUS 2.4 mg/dL (2.5-4.9)
[2022-03-20 08:00] VITALS: BP 112/95
[2022-03-20] MEDS: THIAMINE HCL 100MG TABLET PO SCH (08:49)
[2022-03-20] MEDS: ENOXAPARIN 40MG/0.4ML SYR SUBCUT SCH (08:49)
[2022-03-20] MEDS: PANTOPRAZOLE 40MG DR TABLET PO SCH (08:49)
[2022-03-20] MEDS: FOLIC ACID 1MG TABLET PO SCH (08:49)
[2022-03-20] MEDS: LEVETIRACETAM 500MG/5ML CUP PO SCH ×2 (08:49→20:11)
[2022-03-20] MEDS: MULTIVITAMINS,THER W-MINERALS TABLET PO SCH (08:49)
[2022-03-20 12:00] VITALS: BP 122/81
[2022-03-20] MEDS ORDERED: POTASSIUM PHOS,M-BASIC-D-BASIC 20 MMOL in DEXT 5% WATER 243.3333 ML IV NR (14:30)
[2022-03-20 16:00] VITALS: BP 135/82
[2022-03-20] MEDS ORDERED: IPRATROPIUM/ALBUTEROL 0.5-3(2.5)MG/3ML NEB HHN SCH (18:00)
[2022-03-20 20:00] VITALS: BP 133/78
[2022-03-20] MEDS: BUDESONIDE 0.5MG/2ML NEB HHN SCH (21:09)
[2022-03-21] VITALS: BP 147/92
[2022-03-21] MEDS: IPRATROPIUM BROMIDE (0.02%) 0.5MG/2.5ML NEB HHN SCH ×2 (02:06→13:00)
[2022-03-21] MEDS: ALBUTEROL (0.083%) 2.5MG/3ML NEB HHN SCH ×3 (02:06→13:00)
[2022-03-21] MEDS: DEXT 5%/0.9% NACL 1,000 ML IV SCH ×3 (03:38→14:22)
[2022-03-21 04:00] VITALS: BP 131/78
[2022-03-21 06:16] LABS: CHLORIDE 102 mEq/L (98-107)
[2022-03-21 06:18] LABS: HEMATOCRIT 32.9 % (42.0-52.0); HEMOGLOBIN 10.7 g/dL (14.0-18.0); MEAN CORPUSCULAR HEMOGLOBIN 30.2 pg (28.0-32.0); MEAN CORPUSCULAR VOLUME 92.9 fL (80.0-94.0); PLATELET 88 x1000/uL (130-400); RED BLOOD CELL COUNT 3.54 mill/uL (4.7-6.1); RED CELL DISTRIBUTION WIDTH 26.2 % (11.6-14.6)
[2022-03-21 06:34] LABS: CREATINE KINASE 1744 IU/L (39-308); PHOSPHORUS 2.2 mg/dL (2.5-4.9)
[2022-03-21 08:00] VITALS: BP 128/84
[2022-03-21] MEDS: LEVETIRACETAM 500MG/5ML CUP PO SCH (08:30)
[2022-03-21] MEDS: FOLIC ACID 1MG TABLET PO SCH (08:31)
[2022-03-21] MEDS: MULTIVITAMINS,THER W-MINERALS TABLET PO SCH (08:31)
[2022-03-21] MEDS: THIAMINE HCL 100MG TABLET PO SCH (08:31)
[2022-03-21] MEDS: ENOXAPARIN 40MG/0.4ML SYR SUBCUT SCH (08:31)
[2022-03-21] MEDS: PANTOPRAZOLE 40MG DR TABLET PO SCH (08:31)
[2022-03-21] MEDS: BUDESONIDE 0.5MG/2ML NEB HHN SCH (09:22)
[2022-03-21] MEDS ORDERED: SODIUM PHOS,M-BASIC-D-BASIC 30 MM in DEXT 5% WATER 500 ML IV NR (15:00)
[2022-03-21] MEDS ORDERED: THIA100T72 PO (15:56)
[2022-03-21] MEDS ORDERED: KEPP500 MT (15:56)
[2022-03-21] MEDS ORDERED: FOLI-43 PO (15:56)
[2022-03-21 16:37] VITALS: BP 120/72
== END 2022-03-21 18:00 | disposition home or self-care (01) | DRG 53 ==
LOC: ER 11:42 → 7WST 15:00 → EDBEDREQ 15:02 → ENRESERV 17:07
PROVIDERS: ADMIT Internal Medicine; ATTEND Internal Medicine
PROC: 4A00X4Z Measurement of Central Nervous Electrical Activity, External Approach (ICD-10-PCS; principal; 2022-03-19)
DX: G40.909 Epilepsy, unspecified, not intractable, without status epilepticus (principal); E83.39 Other disorders of phosphorus metabolism; F10.239 Alcohol dependence with withdrawal, unspecified; J44.9 Chronic obstructive pulmonary disease, unspecified; E87.6 Hypokalemia; R74.01 Elevation of levels of liver transaminase levels; F17.210 Nicotine dependence, cigarettes, uncomplicated; Z91.14 Patient's other noncompliance with medication regimen; Z79.899 Other long term (current) drug therapy; Y90.1 Blood alcohol level of 20-39 mg/100 ml
CPT/HCPCS: 36415; 70551; 71045; 76700; 80048; 80053; 80061; 80165; 80184; 80185; 80305; 80320; 81003; 82550; 82607; 82728; 83540; 83550; 83735; 84100; 84425; 84439; 84443; 85025; 85027; 93005; 94640; 95816; 97162; 97166; 99291; J1650; J1953; J2060; J3411; J3490; J7030; J7042; J7060; J7070; J7626; G0480

== ENCOUNTER 2022-06-24 06:02 | Emergency (ER) | payer OTHER ==
[~2022-06-24] VITALS: Ht 175.3 cm; Wt 70.0 kg
[~2022-06-24 06:02] MED LIST changes: +FOLI-43 PO; +KEPP500 MT; -LEVE750T4 MT; -LEVE750T4 PO; +THIA100T72 PO
[2022-06-24] MEDS ORDERED: LEVETIRACETAM 1,000 MG in SODIUM CHLORIDE 0.9% 100 ML IV SCH (07:15)
[2022-06-24 07:48] LABS: HEMATOCRIT. 31.3 % (42.0-52.0); MEAN CORPUSCULAR HEMOGLOBIN 27.4 pg (28.0-32.0); MEAN CORPUSCULAR VOLUME 85.8 fL (80.0-94.0); MEAN PLATELET VOLUME 8.3 fl (7.4-10.4); PLATELET 191 x1000/uL (130-400); RED BLOOD CELL COUNT 3.65 mill/uL (4.7-6.1); RED CELL DISTRIBUTION WIDTH 22.5 % (11.6-14.6)
[2022-06-24 07:54] LABS: CHLORIDE 111 mEq/L (98-107)
[2022-06-24] MEDS ORDERED: LEVETIRACETAM 1000MG PREMIX 100 ML IV SCH (08:00)
[2022-06-24 08:44] LABS: PLATELET ESTIMATE NORMAL
[2022-06-24] MEDS ORDERED: POTASSIUM CHLORIDE 20MEQ TABLET SR PO NR (09:00)
[2022-06-24 10:30] VITALS: BP 130/82
== END 2022-06-24 11:07 | disposition home or self-care (01) ==
LOC: ER 06:14
DX: G40.509 Epileptic seizures related to external causes, not intractable, without status epilepticus (principal); F12.10 Cannabis abuse, uncomplicated; F17.200 Nicotine dependence, unspecified, uncomplicated; J45.909 Unspecified asthma, uncomplicated
CPT/HCPCS: 36415; 80053; 85025; 96365; 96366; 99284; J1953; Z7610; J7050

== ENCOUNTER 2022-07-25 09:11 | Emergency (ER) | payer OTHER ==
[~2022-07-25] VITALS: Ht 167.6 cm; Wt 61.0 kg
[2022-07-25] MEDS ORDERED: LORAZEPAM 2MG/ML CPJ IV ONE (09:30)
[2022-07-25] MEDS ORDERED: LEVETIRACETAM 1000MG PREMIX 100 ML IV ONE (09:30)
[2022-07-25 09:44] LABS: BASOPHILS % 0.7 % (0.0-2.0); EOSINOPHILS % 0.4 % (0.0-5.0); HEMATOCRIT. 37.8 % (42.0-52.0); HEMOGLOBIN. 11.5 g/dL (14.0-18.0); LYMPHOCYTES % 21.9 % (20.0-50.0); MEAN CORPUSCULAR HEMOGLOBIN 26.5 pg (28.0-32.0); MEAN PLATELET VOLUME 8.4 fl (7.4-10.4); MONOCYTES % 9.2 % (2.0-8.0); NEUTROPHILS % 67.8 % (40.0-76.0); PLATELET 179 x1000/uL (130-400); RED BLOOD CELL COUNT 4.34 mill/uL (4.7-6.1); RED CELL DISTRIBUTION WIDTH 22.5 % (11.6-14.6)
[2022-07-25 09:45] LABS: CHLORIDE 100 mEq/L (98-107)
[2022-07-25 09:53] LABS: ETHANOL BLOOD < 10 mg/dL (-10)
[2022-07-25] MEDS ORDERED: FOLIC ACID 1 MG, THIAMINE HCL 100 MG, MVI, ADULT NO.1 10 ML in DEXTROSE 5% WATER 1,000 ML IV ONE ×4 (11:15)
[2022-07-25 11:39] LABS: PLATELET ESTIMATE NORMAL
[2022-07-25 12:02] LABS: CLARITY URINE CLEAR (CLEAR); COLOR URINE YELLOW (YELLOW); KETONES URINE TRACE (NEGATIVE); LEUKOCYTE ESTERASE URINE NEGATIVE (NEGATIVE); NITRITE URINE NEGATIVE (NEGATIVE); OCCULT BLOOD URINE 2+ (NEGATIVE); PH URINE 5.5 (4.5-8.0); PROTEIN URINE 2+ (NEGATIVE); SPECIFIC GRAVITY URINE 1.018 (1.005-1.030)
[2022-07-25 12:29] LABS: *AMPHETAMINES SCREEN URINE NEGATIVE (NEGATIVE); *BARBITURATES SCREEN URINE NEGATIVE (NEGATIVE); *BENZODIAZEPINES SCREEN URINE NEGATIVE (NEGATIVE); *COCAINE SCREEN URINE NEGATIVE (NEGATIVE); CANNABINOID URINE SCREEN PRESUMTIVE POSITIVE (NEGATIVE); METHADONE URINE SCREEN NEGATIVE (NEGATIVE); OPIATES URINE SCREEN NEGATIVE (NEGATIVE); PHENCYCLIDINE URINE SCREEN NEGATIVE (NEGATIVE)
[2022-07-25 15:47] VITALS: BP 140/85
== END 2022-07-25 15:57 | disposition short-term general hospital (02) ==
LOC: ER 09:44 → CMPBEDREQ 07-26 00:40
DX: G40.901 Epilepsy, unspecified, not intractable, with status epilepticus (principal); F12.10 Cannabis abuse, uncomplicated; J45.909 Unspecified asthma, uncomplicated
CPT/HCPCS: 36415; 70450; 80053; 80305; 80320; 81003; 82962; 85025; 96365; 96366; 96367; 96375; 99285; J1953; J2060; J3411; J3490; J7070; Z7610; G0480